=== PATIENT | female | born 1980 | race Caucasian/White ===

== ENCOUNTER 2017-07-14 07:58 | Inpatient (IN) | payer BC, MEDICAID ==
[2017-07-14] MEDS ORDERED: CLINDAMYCIN PHOSPHATE 900 MG in DEXTROSE 5 % IN WATER 100 ML IV ONE ×2 (09:06)
[2017-07-14] MEDS ORDERED: OXYTOCIN 20 UNITS in RINGER'S SOLUTION,LACTATED 1,000 ML IV ONE (09:06)
[2017-07-14] MEDS ORDERED: RINGER'S SOLUTION,LACTATED 1,000 ML IV PRN (09:06)
[2017-07-14] MEDS ORDERED: GENTAMICIN SULFATE 100 MG in DEXTROSE 5 % IN WATER 100 ML IV SCH ×2 (09:06)
[2017-07-14] MEDS ORDERED: DEXTROSE 5% IV ONE ×2 (09:30)
[2017-07-14] MEDS ORDERED: WATER IV ONE ×2 (09:30)
[2017-07-14] MEDS ORDERED: GENTAMICIN SULFATE IV ONE ×2 (09:30)
--- NOTE | 2017-07-14 09:35 | OR ---
Operative Report - Dictated Report Narrative: Operative report: 07/11/2017 Preoperative diagnosis: Prior , 39.1 weeks, desires permanent sterilization, desiring scar revision, hypothyroid, GERD, tobacco abuse, varicose veins Postoperative diagnosis: Same Procedure: Repeat low-transverse section, bilateral salpingectomies, scar revision (14cm) status: planned Surgeon: Mercedes Dee D.O. Mail Censor: OR staff Anesthesia: Spinal IV fluids: Milliliters Urine output: 200 Milliliters EBL: 300 Milliliters Findings: nl uterus, tubes, ovaries, male, cephalic, 04/29, 1120 Drains: Marques catheter to gravity Pathology: Bilateral fallopian tubes Complications: None Condition: Stable The patient was taken to the operating room with IV fluids running and Marques catheter in place. She was placed in the dorsal supine position with a leftward tilt. She was prepped and draped in the normal sterile fashion. A Pfannenstiel skin incision was made with the scalpel approximately 2 cm above the pubic symphysis excising the prior incision and subcutaneous scar tissue. The subcutaneous tissue was dissected down to the fascia. The fascia was incised in the midline and extended laterally. The superior aspect of the fascia was grasped with Tasneem clamps and the rectus muscles were dissected off the fascia using Velasco scissors and blunt dissection. In a similar fashion, the inferior aspect of the fascia was grasped and the rectus muscles dissected off. The peritoneum was then entered and extended with good visualization of the bowel and bladder. The uterine incision was made in a low-transverse fashion using the scalpel. It was extended laterally in a blunt manner. The was found to be cephalic. The infant was then delivered atraumatically. The cord was clamped and cut. The was handed off to the waiting print support specialist. Cord blood was then collected. The placenta was then delivered spontaneously. The uterus was cleared of all clots and debris. Uterine incision was reapproximated using 0 Vicryl in a running locked fashion. A second layer of 0 Vicryl was used to imbricate the uterine incision. Hemostasis was obtained. Attention was then turned to the left fallopian tube. This was grasped with the Coden clamp and electrocautery was used to sequentially cauterize and cut and remove the entire fallopian tube. The pedicle was again cauterized and hemostasis was obtained. This was repeated with the right fallopian tube. The fallopian tube were then placed in a specimen container and taken to pathology. Hemostasis was noted. The peritoneum was then reapproximated using 3-0 Monocryl. The rectus muscles were inspected, cautery was used to obtain hemostasis. The fascia was then reapproximated with 0 Vicryl. The subcutaneous tissue was then irrigated. Bovie cautery was used to obtain hemostasis. The subcutaneous tissue was then reapproximated using 3-0 Monocryl. The skin was closed in a subcuticular fashion using 4-0 Monocryl. The incision was found to be hemostatic. Benzoin and Steri-Strips were then applied. Telfa and ABDs bandage was then placed. The patient tolerated the procedure well. Sponge, lap, needle, and instrument counts were correct throughout the entire procedure. The patient was taken to the recovery room in stable condition. History for MU Definition: * The number of deliveries resulting in a live the patient experienced prior to current hospitalization * The previous delivery of live twins or any live multiple gestation is considered one live event. *If primagravida or nulliparous is documented select zero for the number of previous live births. Live Events: 4
[2017-07-14] MEDS: RINGER'S SOLUTION,LACTATED 1,000 ML IV PRN ×2 (09:47→10:40)
[2017-07-14] MEDS ORDERED: RINGER'S SOLUTION,LACTATED 1,000 ML IV ONE (12:13)
[2017-07-14] MEDS ORDERED: SENNOSIDES 8.6 MG TABLET PO PRN (12:17)
[2017-07-14] MEDS ORDERED: SIMETHICONE 80 MG TAB.CHEW PO PRN (12:17)
[2017-07-14] MEDS ORDERED: BISACODYL 10 MG SUPP.RECT RC PRN (12:17)
[2017-07-14] MEDS ORDERED: ONDANSETRON HCL/PF 2 MG/ML VIAL IV PRN (12:17)
--- NOTE | 2017-07-14 12:39 | OR ---
Anesthesia Procedure Note - Anesthesia Procedure Note Date of Service: 07/14/17 Narrative: Vital Signs - Last Taken Temp 37.0 C 07/14/17 12:33 Pulse 94 07/14/17 12:33 Resp 16 07/14/17 12:33 BP 113/62 07/14/17 12:33 Pulse Ox 97 07/14/17 12:33 O2 Oxygen Delivery Method Room Air 07/14/17 12:38 ANESTHESIA PROCEDURE NOTE Date of Procedure: 07/14/2017 Time of procedure: 1220. Performed by: IRVIN Larson CRNA, MSN Telecommunications Engineer: Tracee Pineda RN. Preprocedure diagnosis: Post section pain. Post procedure diagnosis: Same. Procedure: Bilateral TAP block Indications: Post section pain relief. Findings: See below. Details of the procedure: The patient was brought to PACU and placed in the supine position. The patient was prepped with chlorhexidine and using ultrasound guidance the 3 abdominal muscular planes were identified and lidocaine 1% was infiltrated to the skin of the intended injection site. Under ultrasound guidance the the internal oblique and transverse this abdominis muscle layers were approached with visualization of a 4 inch block needle until the tip of the needle rested in the plane between the muscles. 25 mL bupivacaine 0.5% with 1-200,000 epinephrine was injected and the procedure was repeated on the other side. Please see radiology/ultrasound report for details and images of the procedure. EBL: 0 Fluids: N/A. Specimen: N/A. Post procedure condition: The patient tolerated the procedure well. No complications were noted. Thank you for this consultation. Norman Estevez CRNA, IRVIN, MSN
[2017-07-14] MEDS: KETOROLAC TROMETHAMINE 30 MG/ML VIAL IV PRN ×2 (14:19→20:12)
[2017-07-14] MEDS: HYDROmorphone HCL 2 MG TABLET PO PRN ×2 (17:48→22:04)
[2017-07-14] MEDS: DOCUSATE SODIUM 100 MG CAPSULE PO SCH (20:13)
[2017-07-15] MEDS: IBUPROFEN 800 MG TABLET PO PRN ×4 (02:24→22:58)
[2017-07-15] MEDS: HYDROmorphone HCL 2 MG TABLET PO PRN ×5 (02:25→19:56)
[2017-07-15] MEDS: DOCUSATE SODIUM 100 MG CAPSULE PO SCH ×4 (06:51→22:07)
--- NOTE | 2017-07-15 11:12 | PN ---
Progess Note - Interim Narrative: 07/15/17 11:11 Subjective: Patient is doing well, ambulating, voiding, tolerating by mouth. Minimal lochia. Pain controlled with medication. Objective: Vital signs stable General: no acute distress Abdomen: Soft, nondistended, diffusely tender, fundus firm Skin: Incision is clean, dry and intact Extremities: Minimal edema, nontender Assessment and plan: Postoperative day 1 Feeding: Breast Pain: Controlled with by mouth medication control: permanent sterilization Routine postoperative care.
[2017-07-16] MEDS: HYDROmorphone HCL 2 MG TABLET PO PRN ×2 (02:30→08:30)
[2017-07-16] MEDS: IBUPROFEN 800 MG TABLET PO PRN ×2 (04:54→11:04)
[2017-07-16] MEDS: DOCUSATE SODIUM 100 MG CAPSULE PO SCH (08:30)
[2017-07-16 08:49] VITALS: BP 122/81
--- NOTE | 2017-07-16 09:46 | PN ---
Progess Note - Interim Narrative: 07/16/17 09:45 Subjective: Patient is doing well, ambulating, voiding, tolerating by mouth. Minimal lochia. Pain controlled with medication. Objective: Vital signs stable General: no acute distress Abdomen: Soft, nondistended, diffusely tender, fundus firm Skin: Incision is clean, dry and intact Extremities: Minimal edema, nontender Assessment and plan: Postoperative day 2 Pain: Controlled with by mouth medication Routine postoperative care.
== END 2017-07-16 13:30 | disposition home or self-care (01) | DRG 766 ==
LOC: OB 07:58
PROVIDERS: ADMIT Obstetrics & Gynecology Gynecologic Oncology; ATTEND Obstetrics & Gynecology Gynecologic Oncology
PROC: 0UB70ZZ Excision of Bilateral Fallopian Tubes, Open Approach (ICD-10-PCS; 2017-07-14)
PROC: 4A1HXCZ Monitoring of Products of Conception, Cardiac Rate, External Approach (ICD-10-PCS; 2017-07-14)
PROC: 10D00Z1 Extraction of Products of Conception, Low, Open Approach (ICD-10-PCS; principal; 2017-07-14 11:00)
DX: O34.211 Maternal care for low transverse scar from previous cesarean delivery (principal); E03.9 Hypothyroidism, unspecified; O99.334 Smoking (tobacco) complicating childbirth; Z3A.39 39 weeks gestation of pregnancy; Z37.0 Single live birth; Z30.2 Encounter for sterilization